=== PATIENT | female | born 2000 | race Two or more races ===

== ENCOUNTER 2024-09-22 07:29 | Emergency (ER) | payer MEDICAID, SELFPAY ==
--- NOTE | 2024-09-22 07:34 | EKG_ITS ---
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2000 Requested By: ED Temporary Provider Order Number: [id number] Reading MD: ED Temporary Provider Measurements Intervals [place] Rate: 98 P: 28 MN: 156 QRS: -40 QRSD: 81 T: 36 QT: 329 QTc: 422 Interpretive Statements SINUS RHYTHM POSSIBLE LEFT ATRIAL ENLARGEMENT [-0.1mV P-WAVE IN V1/V2] LEFT AXIS DEVIATION [QRS AXIS < -30] POSSIBLE ANTERIOR MYOCARDIAL INFARCTION , OF INDETERMINATE AGE [30 ms Q WAVE IN V3/V4, OR R < 0.2 mV IN V4] Compared to ECG 10/23/2023 09:39:25 Left-axis deviation now present Myocardial infarct finding now present Sinus tachycardia no longer present /store/[id number]
[2024-09-22 07:37] VITALS: BP 154/105; PULSE 99; RESP 17; TEMP 36.9; O2SAT 99
--- NOTE | 2024-09-22 07:42 | XR_ITS ---
Examination: PA lateral chest 2 views TECHNIQUE: Upright PA lateral chest 2 views Date and time: September 22, 2024 0751 hours INDICATIONS: Chest pain beginning 3 days ago. FINDINGS: Normal heart size. Lungs are clear. The osseous structures are intact IMPRESSION: No active disease
--- NOTE | 2024-09-22 07:43 | PD.EDCHEST ---
ED Chest Pain RME/HPI General Chief Complaint: Chest Pain Stated Complaint: CHEST PAIN STARTING FRIDAY Time Seen by Provider: 09/22/24 07:32 Source: patient Arrival date/time: 09/22/24 07:29 24-year-old female with no known medical history presents to the emergency room with a chief complaint of 9 out of 10 sternal chest pain that radiates to the left chest x 2 days Mode of arrival: ambulatory Limitations: no limitations Related Data Allergies Allergy/AdvReac Type Severity Reaction Status Date / Time No Known Allergies Allergy Verified 09/22/24 07:32 Review of Systems Review of Systems Systems Reviewed: All systems reviewed, normal except as documented Constitutional Constitutional: Reports system reviewed and no additional complaints, except as documented, Denies fatigue, Denies fever(s), Denies headache(s) and Denies weakness Eyes Eyes: Reports system reviewed and no additional complaints, except as documented, Denies blurry vision and Denies change in vision ENT Ears, Nose, Mouth, and Throat: Reports system reviewed and no additional complaints, except as documented, Denies otalgia, Denies headache(s), Denies nasal congestion, Denies throat swelling and Denies vertigo Cardiovascular Cardiovascular: Reports system reviewed and no additional complaints, except as documented, Reports chest pain, Reports chest pain at rest, Denies dyspnea and Denies dyspnea on exertion Respiratory Respiratory: Reports system reviewed and no additional complaints, except as documented, Denies chest congestion, Denies cough, Denies dyspnea, Denies dyspnea on exertion and Denies wheezing Gastrointestinal Gastrointestinal: Reports system reviewed and no additional complaints, except as documented, Denies abdominal pain, Denies cramping, Denies nausea and Denies vomiting Genitourinary Genitourinary: Reports system reviewed and no additional complaints, except as documented Musculoskeletal Musculoskeletal: Reports system reviewed and no additional complaints, except as documented and Denies back pain Integumentary/Breasts Skin/Breast: Reports system reviewed and no additional complaints, except as documented and Denies wounds Neurologic Neurologic: Reports system reviewed and no additional complaints, except as documented, Denies confusion, Denies headache(s), Denies lack of coordination, Denies vertigo and Denies weakness Psychiatric Psychiatric: Reports system reviewed and no additional complaints, except as documented, Denies anxiety, Denies confusion, Denies depression, Denies paranoia, Denies suicidal ideation and Denies tactile hallucinations Endocrine Endocrine: Reports system reviewed and no additional complaints, except as documented and Denies fatigue Hematologic/Lymphatic Hematologic/Lymphatic: Reports system reviewed and no additional complaints, except as documented and Denies lymphadenopathy Allergic/Immunologic Allergic/Immunologic: Reports system reviewed and no additional complaints, except as documented, Denies throat swelling, Denies urticaria and Denies wheezing ED Exam General Limitations: Present no limitations General appearance: Present alert and in no apparent distress Head Head exam: Present atraumatic Eye Eye exam: Present normal appearance, PERRL and EOMI ENT ENT exam: Present normal exam, normal oropharynx and mucous membranes moist Neck Neck exam: Present normal inspection, full ROM and trachea midline Chest Chest inspection: Present normal inspection and symmetric chest wall rise Respiratory Respiratory exam: Present normal lung sounds bilaterally; Absent respiratory distress, wheezes, stridor, accessory muscle use or prolonged expiratory phase Cardiovascular Cardiovascular exam: Present regular rate, normal rhythm, normal heart sounds, +S1 and +S2; Absent bradycardia, tachycardia, irregular rhythm, systolic murmur, diastolic murmur, rubs, gallop, clicks or JVD Abdominal Exam Abdominal exam: Present soft and normal bowel sounds Extremities Exam Extremities exam: Present normal inspection and full ROM Back Exam Back exam: Present normal inspection and full ROM Neurological Exam Neurological exam: Present alert, oriented X3 and CN II-XII intact Psychiatric Psychiatric exam: Present normal affect and normal mood Skin Skin exam: Present warm, dry, intact and normal color Course Quality Measures none Orders Category Date Time Status EKG (ED ONLY) *Do not use* NOW Care 09/22/24 07:34 Completed EKG (ED ONLY) *Do not use* NOW Care 09/22/24 10:02 Active EKG (ED Only) Stat Exams 09/22/24 07:34 Draft EKG (ED Only) Stat Exams 09/22/24 10:02 Draft XR chest 2V Stat Exams 09/22/24 07:42 Taken B-Type Natriuretic Peptide Stat Lab 09/22/24 08:30 Completed CBC Stat Lab 09/22/24 08:30 Completed Comprehensive Metabolic Panel Stat Lab 09/22/24 08:30 Completed Troponin I Stat Lab 09/22/24 08:30 Completed Vital Signs Vital signs: Vital Signs Temperature 98.5 F 09/22/24 07:37 Pulse Rate 99 09/22/24 07:37 Respiratory Rate 17 09/22/24 07:37 Blood Pressure 154/105 H 09/22/24 07:37 Pulse Oximetry (%) 99 09/22/24 07:37 Oxygen Delivery Method Room Air 09/22/24 07:37 O2 saturation 99% within normal limits Procedures -ED EKG Interpretation #1: Date of EK09/22/24 Rate: 71 Interpretation: Reviewed by me EKG Impression: Normal sinus rhythm Chest Pain MDM Narrative MDM Narrative:: 24-year-old female with no known medical history presents to the emergency room with a chief complaint of 9 out of 10 sternal chest pain that radiates to the left chest x 2 days Patient is hemodynamically stable and in no apparent distress Physical examination shows clear bilateral lung sounds there is no wheezing or any abnormal breath sounds The patient has a strong regular rhythm S1 and S2 noted no murmurs no clicks no JVD EKG shows normal sinus rhythm at [address] deviation CBC CMP troponin were all negative Patient was discharged and educated to follow-up with primary care provider in the next 24 to 48 hours and return to the emergency room for any evidence of worsening signs or symptoms Patient data External records reviewed:: [facility] previous records Clinical information provided by:: patient Social determinants that could affect healthcare access:: none Patient has the following chronic illnesses:: No chronic illness How is presenting disease/condition affected by chronic disease/condition?: no chronic disease Evaluation data The following diagnostics were reviewed and interpreted by me:: lab results and radiology exam(s) Lab and/or radiology exams considered but not ordered:: Labs and radiology exams considered and ordered Interpretation Summary: Chest x-ray-no pneumonic infiltrates Medications / Prescriptions Medications or Prescriptions considered but not ordered:: No medication given Medication administrations:: No medication given Consultations Consultation(s) initiated? (list below): No Diagnosis Chest Pain Differential Diagnosis: stable angina, atypical chest pain, st elevation myocardial infarction, costochondritis and chest pain Most likely diagnosis given after review of the tests above:: Chest pain Admission Indicated Admission indicated?: not indicated Admission Request Was there a request for admission?: No Disposition Plan Disposition Plan: Discharge Discharge Attestation Discharge Attestation: The patient and all family members were given an opportunity to ask questions and understood the discharge instructions. Discharge instructions specifically effects, indications for sooner follow up or return to the emergency department, and the expected course of current diagnosis. Patient condition: Stable Discharge Plan Plan Patient Disposition: HOME (Self Care) Discharge Disposition comment: Stable Prescriptions/Referrals Referrals: Terrance Sanchez MD [Primary Care Provider] - In 1 week Problem List Clinical Impression: Chest pain Patient/Caregiver Discharge Instructions Education Materials: ED Chest Pain, Noncardiac Additional Instructions: Please follow-up with your primary care provider in the next 24 to 48 hours Your cardiac examination was within normal limits. Please follow-up with your primary care provider for further management of this chest pain For any evidence of worsening signs or symptoms return to the emergency room immediately Print Language: Croatian Stand Alone Forms: Mariella Award Info., Patient Portal Info Letter PA/CATALYST CONCENTRATION OPERATOR Supervising Physician PA/CATALYST CONCENTRATION OPERATOR Supervising Physician: Dr. Keller
[2024-09-22 08:49] LABS: Basophils % (Auto) 0 % (0-2.5); Eosinophils # (Auto) 0.2 Thou/mm3 (0.0-0.5); Eosinophils % (Auto) 3 % (0-10); Hemoglobin 14.9 g/dL (12.0-16.0); Immature Granulocytes % (Auto) 0 % (0-0); Immature Granulocytes Auto 0.02 Thou/mm3 (0.00-0.00); Lymphocytes # (Auto) 2.2 Thou/mm3 (1.0-4.8); Lymphocytes % (Auto) 29 % (10-50); Mean Corpuscular HGB Conc 33.9 g/dl (31.0-37.0); Mean Corpuscular Hemoglobin 26.4 pg (25.0-35.0); Mean Corpuscular Volume 78 fL (80-100); Monocytes # (Auto) 0.4 Thou/mm3 (0.0-0.8); Monocytes % (Auto) 5 % (0-12); Neutrophils # (Auto) 4.6 Thou/mm3 (1.8-7.7); Neutrophils % (Auto) 62 % (37-80); Nucleated Red Blood Cell % 0 /100 WBC (0); Platelet Count 257 Thou/mm3 (140-440); RDW Standard Deviation 38.8 fL (36.4-46.3); Red Blood Count 5.64 Miln/mm3 (4.00-5.20); White Blood Count 7.3 Thou/mm3 (3.6-11.0)
[2024-09-22 09:14] LABS: Alanine Aminotransferase 20 U/L (10-49); Albumin, Serum 4.5 gm/dL (3.5-5.0); Albumin/Globulin Ratio 1.7 (1.2-2.2); Alkaline Phosphatase 76 U/L (46-116); Anion Gap 8 (7-16); BUN/Creatinine Ratio 10 Ratio (12-20); Bilirubin,Total 0.6 mg/dL (0.3-1.2); Blood Urea Nitrogen 9 mg/dL (9-23); Calcium 9.9 mg/dL (8.3-10.6); Calcium (Corrected) 9.9 mg/dL (8.5-10.1); Carbon Dioxide 26.7 mMol/L (20.0-31.0); Chloride 105 mMol/L (98-107); Creatinine (Component) 0.9 mg/dL (0.6-1.3); Estimated Creatinine Clearance 112.2 mL/min (>60); Globulin 2.7 gm/dL (2.3-3.5); Glucose 119 mg/dL (74-106); Osmolality,Calculated 279 (275-295); Potassium 4.2 mMol/L (3.4-5.1); Sodium 140 mMol/L (136-145); Total Protein 7.2 gm/dL (5.7-8.2); Troponin I 0.036 ng/mL (0.0-0.045); eGFR > 60 See Note
[2024-09-22 09:33] LABS: B-Type Natriuretic Peptide 43 pg/mL (0-100)
--- NOTE | 2024-09-22 10:02 | EKG_ITS ---
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
[2024-09-22 10:18] VITALS: BP 142/78; PULSE 78; RESP 18; TEMP 36.8; O2SAT 99
== END 2024-09-22 10:19 | disposition home or self-care (01) ==
PROVIDERS: Nurse Practitioner Family; Emergency Provider Emergency Medicine; PCP Family Medicine
DX: R07.2 Precordial pain (principal); R94.31 Abnormal electrocardiogram [ECG] [EKG]
CPT/HCPCS: 36415; 71046; 80053; 83880; 84484; 85025; 93005; 99283

== ENCOUNTER 2024-09-25 23:10 | Emergency (ER) | payer MEDICAID, SELFPAY ==
--- NOTE | 2024-09-25 23:19 | PD.EDSOB ---
ED SOB =RME/HPI General Chief Complaint: Chest Pain Stated Complaint: ANXIETY Time Seen by Provider: 09/25/24 23:19 Arrival date/time: 09/25/24 23:10 RME / HPI RME / HPI Narrative: This section includes all my notes and documentations, including HPI, PE, and ED course. Charly Meier MD HPI: 24 y/o female with Hx of Anxiety and HTN BIBA from home presents with shortness of breath, chest pain, and elevated blood pressure x 3 days. Per EMS, patient's BP was 250/130 and HR of 140 on scene. Patient takes Metoprolol and has been compliant. She previously took anxiety medications but not anymore. Denies fever or cough. No other complaints. ROS: All negative except as documented in HPI. Physical Exam: General:? Alert and oriented.? Appears severely anxious. High BP noted. Eyes:? Conjunctivae and lids clear.? EOMI.? PERRL. ENT:? No nasal congestion.? Neck:? Supple.? No carotid bruit.? No JVD.?? Heart: Sinus tachycardia noted. Lungs:? No respiratory distress.? Good air movement.? No rhonchi, wheezing, rales.?? Abdomen:? Soft and nontender.? Back:? No CVA tenderness.?? Legs:? No clubbing, cyanosis, edema.? Skin:? Warm and dry.?? Neuro:? Alert and oriented X 3.? Cranial Nerves II-XII grossly intact.? No peripheral motor deficits. I reviewed EMS notes. I reviewed all diagnostic test results: My interpretation of the EKG is: Sinus rhythm (96 bpm) with nonspecific ST-T changes. My interpretation of the chest x-ray is: NAD. My review of the CT report is: NAD. Blood tests and urine tests unremarkable, including negative troponin/D-dimer/BNP. At this point, diagnoses include: Tachycardia, Hypertensive Urgency. Treatment here included: Xanax, Catapres, Metoprolol. Significant improvement noted. Recommended more outpatient workup. Based on my best medical judgment, made decision no further evaluation or treatment indicated at this time. Patient understands and agrees to the discharge instructions customized and printed, see below. Discharge instructions from Dr. Meier: 1. After evaluation, you are treated for severely high BP and severely fast heart rate. Fortunately, there is no life-threatening condition.? Such as stroke or brain tumor or heart attack or pulmonary embolism (blood clots in your lungs) or pneumothorax (collapsed lung). 2. Take metoprolol 50 mg twice daily. You will live longer with lower BP and slower heart rate. 3. Take Xanax as needed.? Some symptoms symptoms may have been due to underlying stress or anxiety or nerves.? This is fairly common. 4. See a private doctor on 09/28/2024 for recheck and further care. Ask to review all test results and official radiology reports, to make sure you receive all necessary follow-ups and monitoring. To make sure there is no serious underlying heart condition, ask to help you get more tests for your heart that cannot be done here in the ER.? Such as Holter Monitor (cardiac monitoring at home from a day to even a month), heart stress test (on treadmill or with medication), echocardiogram (imaging of your heart structures), heart catherization (checking for blockages in your heart arteries), and a referral to see a Physical Therapy Aid. 5. Seek immediate medical care with worsening or with any concerns.?? Charly Meier MD Related Data Previous Rx's ?Medication ?Instructions ?Recorded alprazolam 0.5 mg tablet (Xanax) 0.5 mg PO BID PRN anxiety #10 tabs 09/26/24 metoprolol succinate 50 mg capsule 50 mg PO BID #60 ea 09/26/24 sprinkle, ext. release 24 hr Allergies Allergy/AdvReac Type Severity Reaction Status Date / Time No Known Allergies Allergy Verified 09/22/24 07:32 Review of Systems Review of Systems Systems Reviewed: All systems reviewed, normal except as documented Past Medical History Past Medical History CARDIAC: Positive Hypertension PSYCHO/SOCIAL: Positive Anxiety ED Exam Narrative Physical exam: Refer to HPI Course Course Course Narrative: CXR is ordered for determining the etiology of shortness of breath. Quality Measures none Orders Category Date Time Status EKG (ED ONLY) *Do not use* NOW Care 09/25/24 23:20 Completed Saline [Insert IV] NOW Care 09/25/24 23:19 Completed Straight [In and Out Catheter] X1 Care 09/25/24 23:[address] head/brain wo con Stat Exams 09/25/24 23:20 Completed EKG (ED Only) Stat Exams 09/25/24 23:20 Ordered XR chest 1V portable Stat Exams 09/25/24 23:20 Completed Alcohol, Blood Medical Stat Lab 09/25/24 23:57 Completed BNP [B-Type Natriuretic Peptide] Stat Lab 09/25/24 23:57 Completed Bilirubin,Direct Stat Lab 09/25/24 23:57 Completed CBC Stat Lab 09/25/24 23:57 Completed CMP [Comprehensive Metabolic Panel] Stat Lab 09/25/24 23:57 Completed D-Dimer Stat Lab 09/25/24 23:57 Completed Drug Screen,Urine Stat Lab 09/26/24 00:08 Completed Free T4 (Free Thyroxine) Stat Lab 09/25/24 23:57 Completed Magnesium Stat Lab 09/25/24 23:57 Completed PTT [Partial Thromboplastin Time] Stat Lab 09/25/24 23:57 Completed TSH [Thyroid Stimulating Hormone] Stat Lab 09/25/24 23:57 Completed Troponin I Stat Lab 09/25/24 23:57 Completed UA, C/S IF [Urinalysis, C/S if Indicated] Stat Lab 09/26/24 00:08 Completed ALPRazoLAM [Xanax] Med 09/25/24 23:36 Discontinued 0.5 mg PO X1 ONE Metoprolol Tartrate [Lopressor] Med 09/25/24 23:19 Discontinued 100 mg PO X1 ONE cloNIDine HCL [Catapres] Med 09/25/24 23:19 Discontinued 0.4 mg PO X1 ONE Vital Signs Vital signs: Vital Signs Temperature 97.8 F 09/25/24 23:22 Pulse Rate 132 H 09/25/24 23:22 Respiratory Rate 30 H 09/25/24 23:22 Blood Pressure 167/100 H 09/25/24 23:22 Pulse Oximetry (%) 100 09/25/24 23:22 Oxygen Delivery Method Room Air 09/25/24 23:22 Shortness of Breath / Dyspnea MDM Narrative MDM Narrative:: Scribe Attestation: Mily Guillermo, am scribing for and in the presence of Dr. Meier. Provider Notation: Although this document has been carefully reviewed, there may still be some phonetic and other typographical errors.? These errors are purely grammatical due to imperfections in the software program and should not be construed in any way to? compromise the substance of the patient's medical care during this visit. 24 y/o female with Hx of Anxiety and HTN BIBA from home presents with shortness of breath, chest pain, and elevated blood pressure x 3 days. Per EMS, patient's BP was 250/130 and HR of 140 prior to it lowering it to 103. Patient takes Metoprolol and is compliant with her medication. She previously took anxiety medication but is no longer. Denies fever or cough. No other complaints. Patient data External records reviewed:: [facility] previous records (Reviewed prior ED records from 09/22/24. Patient was seen for Chest pain.) and EMS form Clinical information provided by:: patient and EMS Social determinants that could affect healthcare access:: mental health (Anxiety) Patient has the following chronic illnesses:: HTN, Anxiety How is presenting disease/condition affected by chronic disease/condition?: exacerbated by Evaluation data The following diagnostics were reviewed and interpreted by me:: lab results, radiology exam(s) and EKG tracing(s) (My interpretation of the EKG is: Sinus rhythm (96 bpm) with nonspecific ST-T changes. Charly Meier MD) Lab and/or radiology exams considered but not ordered:: None Interpretation Summary: I reviewed all diagnostic test results: My interpretation of the EKG is: Sinus rhythm (96 bpm) with nonspecific ST-T changes. My interpretation of the chest x-ray is: NAD. My review of the CT report is: NAD. Blood tests and urine tests unremarkable, including negative troponin/D-dimer/BNP. Medications / Prescriptions Medications or Prescriptions considered but not ordered:: None Medication administrations:: Medication Administration History Discontinued Medications Alprazolam (Alprazolam 0.25 Mg Tablet) 0.5 mg PO X1 ONE Stop: 09/25/24 23:37 Last Admin: 09/25/24 23:54 Dose: 0.5 mg Documented By: CLINTON Clonidine (Clonidine Hcl 0.1 Mg Tablet) 0.4 mg PO X1 ONE Stop: 09/25/24 23:20 Last Admin: 09/25/24 23:56 Dose: Not Given Documented By: CLINTON Non-Admin Reason: Discontinued Metoprolol Tartrate (Metoprolol Tartrate 25 Mg Tablet) 100 mg PO X1 ONE Stop: 09/25/24 23:20 Last Admin: 09/25/24 23:53 Dose: 100 mg Documented By: CLINTON Metoprolol, Catapres, Xanax. Consultations Consultation(s) initiated? (list below): No Diagnosis Shortness of Breath Differential Diagnosis: congestive heart failure, community acquired pneumonia, pulmonary embolism and other (CVA, brain tumor, [place], anxiety) Most likely diagnosis given after review of the tests above:: Tachycardia, Hypertensive Urgency Admission Indicated Admission indicated?: not indicated Explain why admission is indicated or not indicated:: With significant improvement, there was no indication for admission. Admission Request Was there a request for admission?: No Disposition Plan Disposition Plan: Discharge Discharge Attestation Discharge Attestation: The patient and all family members were given an opportunity to ask questions and understood the discharge instructions. Discharge instructions specifically effects, indications for sooner follow up or return to the emergency department, and the expected course of current diagnosis. Patient condition: Stable Discharge Plan Plan Patient Disposition: HOME (Self Care) Prescriptions/Referrals Prescriptions/Med Rec: New metoprolol succinate 50 mg capsule,sprinkle,ER 24hr 50 mg PO BID Qty: 60 0RF alprazolam [Xanax] 0.5 mg tablet 0.5 mg PO BID PRN (Reason: anxiety) Qty: 10 0RF Referrals: Terrance Sanchez MD [Primary Care Provider] - In 1 week Problem List Clinical Impression: Hypertensive urgency, Tachycardia Patient/Caregiver Discharge Instructions Discharge Activity: activity as tolerated Education Materials: ED Hypertension, Established Additional Instructions: Discharge instructions from Dr. Meier: 1. After evaluation, you are treated for severely high BP and severely fast heart rate. Fortunately, there is no life-threatening condition.? Such as stroke or brain tumor or heart attack or pulmonary embolism (blood clots in your lungs) or pneumothorax (collapsed lung). 2. Take metoprolol 50 mg twice daily. You will live longer with lower BP and slower heart rate. 3. Take Xanax as needed.? Some symptoms symptoms may have been due to underlying stress or anxiety or nerves.? This is fairly common. 4. See a private doctor on 09/28/2024 for recheck and further care. Ask to review all test results and official radiology reports, to make sure you receive all necessary follow-ups and monitoring. To make sure there is no serious underlying heart condition, ask to help you get more tests for your heart that cannot be done here in the ER.? Such as Holter Monitor (cardiac monitoring at home from a day to even a month), heart stress test (on treadmill or with medication), echocardiogram (imaging of your heart structures), heart catherization (checking for blockages in your heart arteries), and a referral to see a Physical Therapy Aid. 5. Seek immediate medical care with worsening or with any concerns.?? Print Language: Greenlandic Stand Alone Forms: Mariella Award Info., Patient Portal Info Letter
--- NOTE | 2024-09-25 23:20 | XR_ITS ---
Examination: PA chest single view TECHNIQUE: Upright PA chest single view Date and time: September 25, 2024 11:39 PM INDICATIONS: Shortness of best chest pain beginning 3 days ago. FINDINGS: Normal heart size. Lungs are clear. The osseous structures are intact IMPRESSION: No active disease
--- NOTE | 2024-09-25 23:20 | XR_ITS ---
Examination: CT brain head without contrast. 2-D sagittal coronal reconstructions Date and time of exam:September 25, 2024 11:23 PM INDICATIONS: Headaches today CTDI: vol (mGy):51 DLP: (mGycm):1022 Technique: Multiple CT axial sections of the brain have been obtained, 5 mm slice thickness. Contrast has not been administered. 2-D sagittal, coronal reconstructions have been obtained Low dose protocols were performed. One or more of the following dose reduction techniques were used; automated exposure control, adjustment of the mA and/or KV according to patient size, use of iterative reconstruction technique. Findings: No significant ventricular enlargement. Intra-axial or extra-axial hemorrhage density is not seen. No mass effect or midline shift Basal cisterns are not remarkable. Fourth ventricle is midline. Cranial vault intact. Impression: Negative for acute hemorrhage, mass effect or midline shift
[2024-09-25 23:22] VITALS: BP 167/100; PULSE 132; PULSE 140; RESP 30; RESP 35; TEMP 36.6; O2SAT 100
[2024-09-25 23:53] VITALS: BP 167/100; PULSE 132
[2024-09-25] MEDS: METOPROLOL TARTRATE 25 MG TABLET 100 MG PO (23:53)
[2024-09-25] MEDS: ALPRazoLAM 0.25 MG TABLET 0.5 MG PO (23:54)
[2024-09-26 00:14] LABS: Basophils # (Auto) 0.1 Thou/mm3 (0.0-0.2); Basophils % (Auto) 1 % (0-2.5); Eosinophils # (Auto) 0.3 Thou/mm3 (0.0-0.5); Eosinophils % (Auto) 2 % (0-10); Hematocrit 43.9 % (36.0-46.0); Immature Granulocytes % (Auto) 0 % (0-0); Immature Granulocytes Auto 0.03 Thou/mm3 (0.00-0.00); Lymphocytes # (Auto) 4.9 Thou/mm3 (1.0-4.8); Lymphocytes % (Auto) 39 % (10-50); Mean Corpuscular HGB Conc 34.2 g/dl (31.0-37.0); Mean Corpuscular Hemoglobin 26.6 pg (25.0-35.0); Mean Corpuscular Volume 78 fL (80-100); Monocytes # (Auto) 0.7 Thou/mm3 (0.0-0.8); Monocytes % (Auto) 6 % (0-12); Neutrophils # (Auto) 6.4 Thou/mm3 (1.8-7.7); Neutrophils % (Auto) 52 % (37-80); Nucleated Red Blood Cell % 0 /100 WBC (0); Platelet Count 366 Thou/mm3 (140-440); RDW Standard Deviation 38.7 fL (36.4-46.3); Red Blood Count 5.63 Miln/mm3 (4.00-5.20); White Blood Count 12.4 Thou/mm3 (3.6-11.0)
[2024-09-26 00:16] LABS: Collection Type, Urine Clean Catch
[2024-09-26 00:20] VITALS: BMI 44.4
[2024-09-26 00:21] LABS: Bilirubin,Urine Negative (Negative); Blood,Urine Negative (Negative); Clarity,Urine Clear (Clear/Hazy); Color,Urine Lt-Yellow (Lt Yel-Yel); Culture Indicated,Urine Not Indicated; Glucose, Urine Negative (Negative); Hyaline Casts,Urine < 1 /hpf (0-1); Ketones,Urine Negative (Negative); Leukocyte Esterase,Urine Negative (Negative); Nitrite,Urine Negative (Negative); Protein,Urine Negative (Neg - Trace); RBC,Urine 1 /hpf (0-3); Specific Gravity,Urine 1.018 (1.001-1.035); Squamous Epithelial Cell,Urine 1 /hpf (0-5); Urobilinogen,Urine Negative mg/dL (0.0-1.0); WBC,Urine 1 /hpf (0-5)
[2024-09-26 00:23] LABS: Partial Thromboplastin Time 29.2 Seconds (22.0-36.0)
[2024-09-26 00:28] LABS: Amphetamine/Methamp Scrn,U Negative (Negative); Barbiturate Screen,Urine Negative (Negative); Benzodiazepines Screen,Urine Negative (Negative); Benzoylecgonine Screen, Ur Negative (Negative); Fentanyl Screen,Urine Negative (Negative); Opiate Screen,Urine Negative (Negative); THC Screen,Urine Negative (Negative)
[2024-09-26 00:41] LABS: Alanine Aminotransferase 30 U/L (10-49); Albumin/Globulin Ratio 1.6 (1.2-2.2); Alcohol, Blood Medical < 3.0 mg/dL (0-10.0); Alkaline Phosphatase 96 U/L (46-116); Anion Gap 12 (7-16); Aspartate Amino Transferase 26 U/L (0-34); B-Type Natriuretic Peptide < 20 pg/mL (0-100); BUN/Creatinine Ratio 12 Ratio (12-20); Bilirubin,Direct 0.2 mg/dL (0.0-0.3); Bilirubin,Total 0.4 mg/dL (0.3-1.2); Blood Urea Nitrogen 12 mg/dL (9-23); Calcium 10.1 mg/dL (8.3-10.6); Calcium (Corrected) 10.1 mg/dL (8.5-10.1); Carbon Dioxide 22.4 mMol/L (20.0-31.0); Chloride 104 mMol/L (98-107); Estimated Creatinine Clearance 102.4 mL/min (>60); Free T4 (Free Thyroxine) 1.42 ng/dL (0.89-1.76); Globulin 3.1 gm/dL (2.3-3.5); Glucose 119 mg/dL (74-106); Magnesium 1.8 mg/dL (1.6-2.6); Osmolality,Calculated 276 (275-295); Potassium 3.5 mMol/L (3.4-5.1); Sodium 138 mMol/L (136-145); Thyroid Stimulating Hormone 4.58 uIU/mL (0.55-4.78); Total Protein 8.1 gm/dL (5.7-8.2); eGFR > 60 See Note
[2024-09-26 00:42] LABS: D-Dimer < 250 ng/mL (<600)
[2024-09-26 01:37] VITALS: BP 140/90; PULSE 59; RESP 17; TEMP 36.6; O2SAT 99
== END 2024-09-26 01:42 | disposition home or self-care (01) ==
PROVIDERS: Emergency Provider Emergency Medicine; PCP Family Medicine
DX: I16.0 Hypertensive urgency (principal); R00.0 Tachycardia, unspecified; F41.9 Anxiety disorder, unspecified; I10 Essential (primary) hypertension; R51.9 Headache, unspecified
CPT/HCPCS: 36415; 70450; 71045; 80053; 80307; 80320; 81001; 82248; 83735; 83880; 84439; 84443; 84484; 85025; 85379; 85730; 93005; 99284; A9270; G0480